=== PATIENT | female | born 1955 | race Hispanic/Latino ===

== ENCOUNTER 2016-12-29 04:18 | Emergency (ER) | payer SELFPAY ==
[2016-12-29 04:26] VITALS: BP 155/93
--- NOTE | 2016-12-29 08:25 | Emergency Department Report ---
- General Chief complaint: Skin/Abscess/Foreign Body Stated complaint: BODY RASH Time Seen by Provider: 12/29/16 07:54 Source: patient Mode of arrival: Ambulatory Limitations: No Limitations - History of Present Illness Initial comments: This is a 61-year-old female that presents to the ED c/o of insect bites that occurred Friday. Patient stated she first seen a bite juwan with redness to the right abdomen and on right groin. Patient then saw another 2 bite rojas to the right upper arm and left groin. Patient denies seeing any insect but suspect it was a insect bite. 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 Patient's associative symptoms includes redness, swelling, and pain. Patient stated allergies to penicillin. Denies past medical history. Patient denies any fever, chills, pus, drainage, nausea, vomiting chest pain or front of breath. MD complaint: insect bite/sting -: Gradual, days(s) (5) Tetanus Up to Date: yes (as per patient) Location: generalized Severity: mild Severity scale (0 -10): 5 Quality: aching Consistency: constant Improves with: none Worsens with: none Context: none Associated symptoms: denies other symptoms Treatments Prior to Arrival: none - Related Data Previous Rx's Medication Instructions Recorded Last Taken Type Azithromycin [Zithromax Z-CURTIS] 250 mg PO DAILY #6 tablet 01/17/14 Unknown Rx Promethazine /Codeine 5 ml PO Q6H PRN #100 ml 01/17/14 Unknown Rx [Phenergan/Codeine 6.25-10 mg/5 ml] Clindamycin [Clindamycin CAP] 450 mg PO Q8HR 7 Days 12/29/16 Unknown Rx Allergies Allergy/AdvReac Type Severity Reaction Status Date / Time banana [Banana] Allergy Angioedema Verified 01/17/14 16:30 Penicillins Allergy Hives Verified 01/17/14 16:30 Abscess Boil HPI - HPI Chief Complaint: Skin/Abscess/Foreign Body Stated Complaint: BODY RASH Time Seen by Provider: 12/29/16 07:54 Home Medications: Previous Rx's Medication Instructions Recorded Last Taken Type Azithromycin [Zithromax Z-CURTIS] 250 mg PO DAILY #6 tablet 01/17/14 Unknown Rx Promethazine /Codeine 5 ml PO Q6H PRN #100 ml 01/17/14 Unknown Rx [Phenergan/Codeine 6.25-10 mg/5 ml] Clindamycin [Clindamycin CAP] 450 mg PO Q8HR 7 Days 12/29/16 Unknown Rx Allergies/Adverse Reactions: Allergies Allergy/AdvReac Type Severity Reaction Status Date / Time banana [Banana] Allergy Angioedema Verified 01/17/14 16:30 Penicillins Allergy Hives Verified 01/17/14 16:30 ED Review of Systems ROS: Stated complaint: BODY RASH Other details as noted in HPI Constitutional: denies: chills, fever Eyes: denies: eye pain, eye discharge, vision change ENT: denies: ear pain, throat pain Respiratory: denies: cough, shortness of breath, wheezing Cardiovascular: denies: chest pain, palpitations Endocrine: no symptoms reported Gastrointestinal: denies: abdominal pain, nausea, diarrhea Genitourinary: denies: urgency, dysuria, discharge Musculoskeletal: denies: back pain, joint swelling, arthralgia Skin: denies: rash, lesions Neurological: denies: headache, weakness, paresthesias Psychiatric: denies: anxiety, depression Hematological/Lymphatic: denies: easy bleeding, easy bruising ED Past Medical Hx - Past Medical History Previous Medical History?: Yes Hx Asthma: Yes - Surgical History Past Surgical History?: Yes Hx Appendectomy: Yes Additional Surgical History: ovarian cyst - Social History Smoking Status: Current Every Day Smoker Substance Use Type: Alcohol - Medications Home Medications: Home Medications Medication Instructions Recorded Confirmed Last Taken Type Azithromycin [Zithromax Z-CURTIS] 250 mg PO DAILY #6 tablet 01/17/14 Unknown Rx Promethazine /Codeine 5 ml PO Q6H PRN #100 ml 01/17/14 Unknown Rx [Phenergan/Codeine 6.25-10 mg/5 ml] Clindamycin [Clindamycin CAP] 450 mg PO Q8HR 7 Days 12/29/16 Unknown Rx ED Physical Exam - General Limitations: No Limitations General appearance: alert, in no apparent distress - Head Head exam: Present: atraumatic, normocephalic, normal inspection - Eye Eye exam: Present: normal appearance, PERRL, EOMI. Absent: scleral icterus, conjunctival injection, nystagmus, periorbital swelling, periorbital tenderness Pupils: Present: normal accommodation - ENT ENT exam: Present: normal exam, normal orophraynx, mucous membranes moist, TM's normal bilaterally, normal external ear exam - Neck Neck exam: Present: normal inspection, full ROM. Absent: tenderness, meningismus, lymphadenopathy, thyromegaly - Respiratory Respiratory exam: Present: normal lung sounds bilaterally. Absent: respiratory distress, wheezes, rales, rhonchi, stridor, chest wall tenderness, accessory muscle use, decreased breath sounds, prolonged expiratory - Cardiovascular Cardiovascular Exam: Present: regular rate, normal rhythm, normal heart sounds. Absent: bradycardia, tachycardia, irregular rhythm, systolic murmur, diastolic murmur, rubs, gallop - GI/Abdominal GI/Abdominal exam: Present: soft, normal bowel sounds - Extremities Exam Extremities exam: Present: normal inspection, full ROM, normal capillary refill. Absent: tenderness, pedal edema, joint swelling, calf tenderness - Back Exam Back exam: Present: normal inspection, full ROM. Absent: tenderness, CVA tenderness (R), CVA tenderness (L), muscle spasm, paraspinal tenderness, vertebral tenderness, rash noted - Neurological Exam Neurological exam: Present: alert, oriented X3, CN II-XII intact, normal gait, reflexes normal - Psychiatric Psychiatric exam: Present: normal affect, normal mood - Skin Skin exam: Present: warm, dry, intact, normal color, other (erythema with tenderness to touch to the right abdomen and right groin and left groin. Consistent with cellulitis. No abscess or swelling noted. No fluctuance present. Tender to touch. Warm to touch. No pus or drainage. No obvious signs of bite rojas noted.). Absent: rash ED Course Vital Signs 12/29/16 04:20 Temperature 97.8 F Pulse Rate 78 Respiratory 18 Rate Blood Pressure 155/93 Blood Pressure 155/93 [Right] O2 Sat by Pulse 100 Oximetry - Reevaluation(s) Reevaluation #1: 12/29/16 08:27 Patient is able speak full sentences with no signs of distress. Critical care attestation.: If time is entered above; I have spent that time in minutes in the direct care of this critically ill patient, excluding procedure time. ED Disposition Clinical Impression: Cellulitis Qualifiers: Site of cellulitis: unspecified site Qualified Code(s): L03.90 - Cellulitis, unspecified Disposition: DC-01 TO HOME OR SELFCARE Is pt being admited?: No Does the pt Need Aspirin: No Condition: Stable Instructions: Cellulitis (ED), Clindamycin (By mouth) Additional Instructions: Follow-up with your primary care doctor in 3-5 days or if symptoms worsen or continue return to emergency room as soon as possible. Finish full course of clindamycin as prescribed. Prescriptions: Clindamycin [Clindamycin CAP] 450 mg PO Q8HR 7 Days Referrals: MORAIMA VARGAS MD [Staff Physician] - 3-5 Days PRIMARY CAREMD [Referring] - 3-5 Days [facility] [Outside] - 3-5 Days [facility] [Outside] - 3-5 Days Forms: Work/School Release Form(ED)
== END 2016-12-29 08:56 | disposition home or self-care (01) ==
LOC: ED 04:18
DX: L03.311 Cellulitis of abdominal wall (principal); J45.909 Unspecified asthma, uncomplicated; F17.200 Nicotine dependence, unspecified, uncomplicated; Z88.0 Allergy status to penicillin; Z91.018 Allergy to other foods; Z53.21 Procedure and treatment not carried out due to patient leaving prior to being seen by health care provider
CPT/HCPCS: 99282